=== PATIENT | female | born 1980 | race American Indian/Alaskan Native ===

== ENCOUNTER 2020-08-08 13:34 | Emergency (ER) | payer MEDICARE ==
--- NOTE | 2020-08-08 14:35 | Event Note ---
ED Screening Note Date of service: 08/08/20 Time: 14:30 ED Screening Note: This initial assessment/diagnostic orders/clinical plan/treatment(s) is/are subject to change based on patients health status, clinical progression and re- assessment by fellow clinical providers in the ED. Further treatment and workup at subsequent clinical providers discretion. Patient/guardian urged not to elope from the ED as their condition may be serious if not clinically assessed and managed. Initial orders include: 40-year-old morbidly obese female with a history of irritable bowel syndrome. She is complaining of generalized abdominal pain and diarrhea x1 week. She denies vomiting. She is complaining of nausea. She is in no acute distress
[2020-08-08 15:28] LABS: Hemoglobin 12.8 gm/dl (10.1-14.3); Mean Corpuscular HGB Conc 35 % (30-34); Mean Corpuscular Volume 88 fl (79-97); Platelet Count 256 K/mm3 (140-440); Red Blood Count 4.21 M/mm3 (3.65-5.03)
[2020-08-08 15:36] LABS: Alanine Aminotransferase 12 units/L (7-56); Albumin 4.3 g/dL (3.9-5); Blood Urea Nitrogen 9 mg/dL (7-17); Calcium 9.2 mg/dL (8.4-10.2); Hemolysis Index 29
[2020-08-08 15:49] LABS: BUN/Creatinine Ratio 13
[2020-08-08] MEDS ORDERED: ACETAMINOPHEN 325 MG TAB PO STA (19:49)
[2020-08-08] MEDS ORDERED: FAMOTIDINE 20 MG/2 ML INJ IV ONE (19:49)
[2020-08-08] MEDS ORDERED: SODIUM CHLORIDE 0.9% 1000 ML 1,000 ML IV ONE (19:49)
[2020-08-08] MEDS ORDERED: ONDANSETRON 4 MG/2 ML INJ IV ONE (19:49)
--- NOTE | 2020-08-08 19:51 | Emergency Department Report ---
ED General Adult HPI - General Chief complaint: Abdominal Pain Stated complaint: STOMACH PAIN PUI?: No Time Seen by Provider: 08/08/20 19:31 Source: patient, RN notes reviewed, old records reviewed Mode of arrival: Ambulatory Limitations: No Limitations - History of Present Illness Initial comments: The patient was evaluated in the emergency department for symptoms described in the history of present illness. He/she was evaluated in the context of the global COVID-19 pandemic, which necessitated consideration that the patient might be at risk for infection with the virus that causes COVID-19. Institutional protocols and algorithms that pertain to the evaluation of patients at risk for COVID-19 are in a state of rapid change based on information released by regulatory bodies including the CDC and federal and state organizations. These policies and algorithms were followed during the patient's care in the emergency department. Please note that these policies, procedures and recommendations changed on a rapid basis. Ms. Albarran is a pleasant 40-year-old female, with a history of obesity, and psychiatric disease. She denies a history of abdominal surgery to myself. She presents to the ER today with complaint of diffuse abdominal cramping and pain, nausea, vomiting x1 yesterday. No fever. No chest pain. Positive heart racing. No new or different shortness of breath. No dysuria. Positive nonspecific gynecologic discharge. Positive brown stool with red blood yesterday. Subjectively feels like she may have a rash on her rectum/gluteal cheeks. Not sexually active recently, no history of dyspareunia, no history of gonorrhea/chlamydia. Abdominal cramping diffuse, all over, increases with palpation and decreases with rest, does not radiate anywhere. -: Gradual, days(s) Location: abdomen Quality: aching Consistency: intermittent Improves with: other Worsens with: other - Related Data Home Medications Medication Instructions Recorded Confirmed Last Taken haloperidoL [Haloperidol] 20 mg PO TID 03/05/20 03/05/20 Unknown Dicyclomine [Bentyl] 20 mg PO BID PRN 03/31/20 03/31/20 Unknown hydrOXYzine PAMOATE [Vistaril] 50 mg PO TID 03/31/20 03/31/20 Unknown Previous Rx's Medication Instructions Recorded Last Taken Type Benztropine [Cogentin] 1 mg PO BID #30 tablet 02/16/20 Unknown Rx Sertraline [Zoloft] 100 mg PO BID #60 tablet 02/16/20 Unknown Rx busPIRone [Buspar] 15 mg PO TID #90 tablet 02/16/20 Unknown Rx carBAMazepine [TEGretol] 300 mg PO Q12HR #60 tablet 02/16/20 Unknown Rx cloZAPine 200 mg PO BID #60 tab 02/16/20 Unknown Rx Acetaminophen [Non-Aspirin Extra 500 mg PO Q6HR PRN #30 tablet 08/08/20 Unknown Rx Strength] Famotidine [Pepcid] 20 mg PO QDAY #30 tablet 08/08/20 Unknown Rx Ibuprofen [Motrin] 600 mg PO Q8H PRN #30 tablet 08/08/20 Unknown Rx Ondansetron [Zofran Odt] 4 mg PO Q8HR PRN #20 tab.rapdis 08/08/20 Unknown Rx Allergies Allergy/AdvReac Type Severity Reaction Status Date / Time No Known Allergies Allergy Verified 02/12/20 01:17 ED Review of Systems ROS: Stated complaint: STOMACH PAIN Other details as noted in HPI Constitutional: other (Denies loss of taste and loss of smell). denies: fever Eyes: denies: eye discharge ENT: denies: congestion Respiratory: denies: wheezing Cardiovascular: palpitations Gastrointestinal: abdominal pain, nausea, vomiting, diarrhea, other Genitourinary: denies: dysuria Musculoskeletal: denies: back pain Skin: rash Neurological: weakness Psychiatric: anxiety Hematological/Lymphatic: denies: easy bleeding ED Past Medical Hx - Past Medical History Previous Medical History?: Yes Hx Psychiatric Treatment: Yes (bipolar schizp borderline personality disorder) Hx Asthma: Yes - Surgical History Past Surgical History?: Yes Additional Surgical History: tonsil - Social History Smoking Status: Never Smoker Substance Use Type: Alcohol - Medications Home Medications: Home Medications Medication Instructions Recorded Confirmed Last Taken Type Benztropine [Cogentin] 1 mg PO BID #30 tablet 02/16/20 03/05/20 Unknown Rx Sertraline [Zoloft] 100 mg PO BID #60 tablet 02/16/20 03/05/20 Unknown Rx busPIRone [Buspar] 15 mg PO TID #90 tablet 02/16/20 03/05/20 Unknown Rx carBAMazepine [TEGretol] 300 mg PO Q12HR #60 tablet 07/26/20 08/13/20 Unknown Rx cloZAPine 200 mg PO BID #60 tab 02/16/20 03/05/20 Unknown Rx haloperidoL [Haloperidol] 20 mg PO TID 03/05/20 03/05/20 Unknown History Dicyclomine [Bentyl] 20 mg PO BID PRN 03/31/20 03/31/20 Unknown History hydrOXYzine PAMOATE [Vistaril] 50 mg PO TID 03/31/20 03/31/20 Unknown History Acetaminophen [Non-Aspirin Extra 500 mg PO Q6HR PRN #30 tablet 08/08/20 Unknown Rx Strength] Famotidine [Pepcid] 20 mg PO QDAY #30 tablet 08/08/20 Unknown Rx Ibuprofen [Motrin] 600 mg PO Q8H PRN #30 tablet 08/08/20 Unknown Rx Ondansetron [Zofran Odt] 4 mg PO Q8HR PRN #20 tab.rapdis 08/08/20 Unknown Rx ED Physical Exam - General Limitations: No Limitations General appearance: alert, anxious, obese - Head Head exam: Present: atraumatic, normocephalic - Eye Eye exam: Present: normal appearance, EOMI. Absent: nystagmus - ENT ENT exam: Present: normal exam, normal orophraynx, mucous membranes moist, normal external ear exam - Neck Neck exam: Present: normal inspection, full ROM. Absent: tenderness, meningismus - Respiratory Respiratory exam: Present: normal lung sounds bilaterally. Absent: respiratory distress, wheezes, rales, rhonchi, stridor, decreased breath sounds - Cardiovascular Cardiovascular Exam: Present: regular rate, normal rhythm, normal heart sounds. Absent: bradycardia, tachycardia, irregular rhythm, systolic murmur, diastolic murmur, rubs, gallop - GI/Abdominal GI/Abdominal exam: Present: soft, tenderness, normal bowel sounds, other (There is mild bilateral lower quadrant abdominal tenderness to deep palpation). Absent: distended, guarding, rebound, rigid, pulsatile mass - Rectal Rectal exam: Present: normal inspection, normal rectal tone, heme (-) stool, other (Chaperoned by Radu Angeles). Absent: heme (+) stool, black stool, bloody stool, fecal impaction, hemorrhoids - External exam: Present: normal external exam. Absent: erythema, swelling, lesions, lacerations Speculum exam: Present: normal speculum exam, vaginal discharge. Absent: erythema, cervical discharge, vaginal bleeding, foreign body Bi-manual exam: Present: normal bi-manual exam, other (Chaperoned by Radu Angeles). Absent: cervical motion tendernes, adnexal tenderness, adnexal mass, uterine enlargement, uterine tenderness - Extremities Exam Extremities exam: Present: normal inspection, full ROM, other (2+ pulses noted in the bilateral upper and lower extremities. There is no palpable cord. n egative Homans sign. Muscular compartments are soft. The pelvis is stable.). Absent: tenderness, pedal edema, joint swelling, calf tenderness - Back Exam Back exam: Present: normal inspection, full ROM. Absent: tenderness, CVA tenderness (R), CVA tenderness (L), paraspinal tenderness, vertebral tenderness - Neurological Exam Neurological exam: Present: alert, oriented X3, normal gait, other (No facial droop. Tongue midline. Extraocular movements intact bilaterally. Facial sensation intact to light touch in V1, V2, V3 distribution bilaterally. 5 and a 5 strength in 4 extremities. Sensation intact to light touch in 4 extremities.). Absent: motor sensory deficit - Psychiatric Psychiatric exam: Present: anxious - Skin Skin exam: Present: warm, dry, intact, normal color. Absent: rash ED Course Vital Signs 08/08/20 08/08/20 08/08/20 13:58 21:18 22:57 Temperature 98.4 F 98.3 F Pulse Rate 87 74 74 Respiratory 22 20 18 Rate Blood Pressure 149/93 Blood Pressure 162/92 139/78 [Left] O2 Sat by Pulse 97 100 100 Oximetry ED Medical Decision Making - Lab Data Result diagrams: 08/08/20 14:51 08/08/20 14:51 Vital Signs 08/08/20 08/08/20 13:58 21:18 Temperature 98.4 F 98.3 F Pulse Rate 87 74 Respiratory 22 20 Rate Blood Pressure 149/93 Blood Pressure 162/92 [Left] O2 Sat by Pulse 97 100 Oximetry Lab Results 08/08/20 08/08/20 08/08/20 Range/Units 14:51 14:51 14:51 WBC 9.8 (4.5-11.0) K/mm3 RBC 4.21 (3.65-5.03) M/mm3 Hgb 12.8 (10.1-14.3) gm/dl Hct 37.0 (30.3-42.9) % MCV 88 (79-97) fl MCH 31 (28-32) pg MCHC 35 H (30-34) % RDW 14.0 (13.2-15.2) % Plt Count 256 (140-440) K/mm3 Sodium 136 L (137-145) mmol/L Potassium 4.0 (3.6-5.0) mmol/L Chloride 101.4 (98-107) mmol/L Carbon Dioxide 24 (22-30) mmol/L Anion Gap 15 mmol/L BUN 9 (7-17) mg/dL Creatinine 0.7 (0.6-1.2) mg/dL Estimated GFR > 60 ml/min BUN/Creatinine Ratio 13 % Glucose 126 H (65-100) mg/dL Calcium 9.2 (8.4-10.2) mg/dL Magnesium (1.7-2.3) mg/dL Total Bilirubin < 0.20 (0.1-1.2) mg/dL AST 18 (5-40) units/L ALT 12 (7-56) units/L Alkaline Phosphatase 99 (35-129) units/L Total Creatine Kinase (30-135) units/L Total Protein 7.5 (6.3-8.2) g/dL Albumin 4.3 (3.9-5) g/dL Albumin/Globulin Ratio 1.3 % Lipase 20 (13-60) units/L HCG, Qual (Negative) Urine Color (Yellow) Urine Turbidity (Clear) Urine pH (5.0-7.0) Ur Specific [place] (1.003-1.030) Urine Protein (Negative) mg/dL Urine Glucose (UA) (Negative) mg/dL Urine Ketones (Negative) mg/dL Urine Blood (Negative) Urine Nitrite (Negative) Urine Bilirubin (Negative) Urine Urobilinogen (<2.0) mg/dL Ur Leukocyte Esterase (Negative) Urine WBC (Auto) (0.0-6.0) /HPF Urine RBC (Auto) (0.0-6.0) /HPF U Epithel Cells (Auto) (0-13.0) /HPF Urine Bacteria (Auto) (Negative) /HPF Urine Mucus /HPF 08/08/20 08/08/20 08/08/20 Range/Units 14:51 14:51 Unknown WBC (4.5-11.0) K/mm3 RBC (3.65-5.03) M/mm3 Hgb (10.1-14.3) gm/dl Hct (30.3-42.9) % MCV (79-97) fl MCH (28-32) pg MCHC (30-34) % RDW (13.2-15.2) % Plt Count (140-440) K/mm3 Sodium (137-145) mmol/L Potassium (3.6-5.0) mmol/L Chloride (98-107) mmol/L Carbon Dioxide (22-30) mmol/L Anion Gap mmol/L BUN (7-17) mg/dL Creatinine (0.6-1.2) mg/dL Estimated GFR ml/min BUN/Creatinine Ratio % Glucose (65-100) mg/dL Calcium (8.4-10.2) mg/dL Magnesium 2.10 (1.7-2.3) mg/dL Total Bilirubin (0.1-1.2) mg/dL AST (5-40) units/L ALT (7-56) units/L Alkaline Phosphatase (35-129) units/L Total Creatine Kinase 195 H (30-135) units/L Total Protein (6.3-8.2) g/dL Albumin (3.9-5) g/dL Albumin/Globulin Ratio % Lipase (13-60) units/L HCG, Qual Negative (Negative) Urine Color Yellow (Yellow) Urine Turbidity Slightly-cloudy (Clear) Urine pH 5.0 (5.0-7.0) Ur Specific [place] 1.021 (1.003-1.030) Urine Protein 30 mg/dl (Negative) mg/dL Urine Glucose (UA) Neg (Negative) mg/dL Urine Ketones Neg (Negative) mg/dL Urine Blood Neg (Negative) Urine Nitrite Neg (Negative) Urine Bilirubin Neg (Negative) Urine Urobilinogen < 2.0 (<2.0) mg/dL Ur Leukocyte Esterase Neg (Negative) Urine WBC (Auto) 2.0 (0.0-6.0) /HPF Urine RBC (Auto) 6.0 (0.0-6.0) /HPF U Epithel Cells (Auto) 4.0 (0-13.0) /HPF Urine Bacteria (Auto) 2+ (Negative) /HPF Urine Mucus 1+ /HPF - EKG Data -: EKG Interpreted by Ne EKG shows normal: sinus rhythm Rate: normal - EKG Data 08/08/20 21:32 Sinus rhythm, 65 bpm, normal axis, normal intervals, motion artifact, nonspecific T wave abnormalities, no complaint of chest pain, abnormal EKG, not a STEMI - Radiology Data Radiology results: report reviewed, image reviewed CT ABDOMEN AND PELVIS WITH IV CONTRAST INDICATION: acute lower abd pain. COMPARISON: None available. TECHNIQUE: All CT scans at this facility use dose modulation, automated exposure control, iterative reconstruction or weight based dosing, when appropriate, to reduce radiation dose to as low as reasonably achievable. FINDINGS: Lung Bases: No significant abnormality. Skeletal System: No acute abnormality. Lung Bases: No significant abnormality. Skeletal System: No acute abnormality. ABDOMEN: Liver: No significant abnormality. Gallbladder: Contracted. Bile Ducts: No significant abnormality. Pancreas: No significant abnormality. Spleen: No significant abnormality. Adrenals: No significant abnormality. Right Kidney: No acute finding. There is a 5 cm cyst in the lateral cortex of right kidney. Left Kidney: No significant abnormality. Upper GI tract: No significant abnormality. Lymph Nodes: No significant adenopathy. Aorta: No significant abnormality. Additional Findings: No significant abnormality. PELVIS: Colon: No acute abnormality. Urinary Bladder and Distal Ureters: No significant abnormality. Appendix: No significant abnormality. Lymph Nodes: No significant adenopathy. Additional Findings: There is an exophytic fibroid arising from the uterine fundus left of midline anteriorly which measures 3 cm on series 2 image 165. IMPRESSION: 1. No acute process in the abdomen or pelvis. 2. Incidental findings, as above. Signer Name: Erwin White MD Signed: 08/08/2020 8:03 PM Workstation Name: [id number] - Medical Decision Making Differential diagnosis, including but not limited to: Constipation, appendicitis, colitis, diverticulitis, anal fissure, obstruction, pelvic inflammatory disease, functional abdominal pain Assessment and plan: 40-year-old female with a complaint of nausea, vomiting, abdominal pain, in addition to a few other complaints such as brown stool with red blood, and gynecologic discharge. The patient is afebrile with reassuring vital signs. She is fairly obese, and has minimal tenderness to bilateral lower quadrant with deep palpation. Gynecologic exam benign and unremarkable. Rectal exam negative for bleeding. Laboratory studies unremarkable. Urinalysis reviewed and appreciated, the patient denies dysuria to myself. CT scan of the abdomen pelvis shows no acute surgical process. Given lack of adnexal tenderness, do not see indication for pelvic ultrasound, ovarian pathology is very unlikely. Patient observed in this ER for hours without clinical decompensation, or active vomiting. The patient can follow-up with an outpatient primary care doctor or paid search specialist for her uterine fibroids. Tylenol, ibuprofen, Pepcid, return precautions are reviewed. Critical care attestation.: If time is entered above; I have spent that time in minutes in the direct care of this critically ill patient, excluding procedure time. ED Disposition Clinical Impression: Acute abdominal pain, Uterine fibroid, Obesity Disposition: - TO HOME OR SELFCARE Is pt being admited?: No Does the pt Need Aspirin: No Condition: Stable Instructions: Abdominal Pain, Adult, Uterine Fibroids, Obesity, Adult, [id number], Abdominal Pain (ED) Additional Instructions: Do not take metformin medication for the next 2 days, if patient takes this medication. Cultures were sent today, and results will be available in the next week. Please have a primary care doctor or paid search specialist contact the medical records department to obtain culture results. Recommend follow-up with an outpatient primary care doctor within the next week. CT scan abdomen pelvis demonstrated uterine fibroids, take the prescribed pain medications, nausea medication as needed and directed, please follow-up with a paid search specialist within the next 6 weeks for uterine fibroids. Recommend that the patient aggressively lose weight, participate in physical activities as tolerated, minimize consumption of sugar, processed foods, and carbohydrates. Please return to the emergency room right away with new pain, worsened pain, migration of pain, intractable vomiting, change in mental status, confusion, inability to tolerate liquid feeds, new, worsened or different symptoms not present on the initial emergency room evaluation. Recommend avoidance of consumption of alcohol, tobacco, smoke products, heavy and spicy foods, when taking ibuprofen, please take with food. Prescriptions: Ibuprofen [Motrin] 600 mg PO Q8H PRN #30 tablet PRN Reason: Pain Acetaminophen [Non-Aspirin Extra Strength] 500 mg PO Q6HR PRN #30 tablet PRN Reason: Pain , Severe (7-10) Famotidine [Pepcid] 20 mg PO QDAY #30 tablet Ondansetron [Zofran Odt] 4 mg PO Q8HR PRN #20 tab.rapdis PRN Reason: Nausea Referrals: [facility] [Other] - 3-5 Days [facility] [Provider Group] - 3-5 Days Forms: Work/School Release Form(ED)
[2020-08-08 21:03] LABS: Bacteria,Urine 2+ /HPF (Negative); Bilirubin,Urine NEG (Negative); Blood,Urine NEG (Negative); Color,Urine Yellow (Yellow); Mucus,Urine 1+ /HPF; Urobilinogen,Urine < 2.0 mg/dL (<2.0)
--- NOTE | 2020-08-08 21:07 | Cat Scan Report ---
CT ABDOMEN AND PELVIS WITH IV CONTRAST INDICATION: acute lower abd pain. COMPARISON: None available. TECHNIQUE: All CT scans at this facility use dose modulation, automated exposure control, iterative reconstructi on or weight based dosing, when appropriate, to reduce radiation dose to as low as reasonably achieva ble. FINDINGS: Lung Bases: No significant abnormality. Skeletal System: No acute abnormality. ABDOMEN: Liver: No significant abnormality. Gallbladder: Contracted. Bile Ducts: No significant abnormality. Pancreas: No significant abnormality. Spleen: No significant abnormality. Adrenals: No significant abnormality. Right Kidney: No acute finding. There is a 5 cm cyst in the lateral cortex of right kidney. Left Kidney: No significant abnormality. Upper GI tract: No significant abnormality. Lymph Nodes: No significant adenopathy. Aorta: No significant abnormality. Additional Findings: No significant abnormality. PELVIS: Colon: No acute abnormality. Urinary Bladder and Distal Ureters: No significant abnormality. Appendix: No significant abnormality. Lymph Nodes: No significant adenopathy. Additional Findings: There is an exophytic fibroid arising from the uterine fundus left of midline an teriorly which measures 3 cm on series 2 image 165. IMPRESSION: 1. No acute process in the abdomen or pelvis. 2. Incidental findings, as above. Signer Name: Erwin White MD Signed: 08/08/2020 9:03 PM Workstation Name: [id number]
[2020-08-08] MEDS ORDERED: KETOROLAC 30 MG/1 ML INJ IV ONE (21:30)
[2020-08-08 22:58] VITALS: BP 139/78
== END 2020-08-08 22:58 | disposition home or self-care (01) ==
LOC: ED 13:34
DX: D25.9 Leiomyoma of uterus, unspecified (principal); R10.84 Generalized abdominal pain; E66.9 Obesity, unspecified; Z68.43 Body mass index [BMI] 50.0-59.9, adult; J45.909 Unspecified asthma, uncomplicated; Z98.890 Other specified postprocedural states; Z79.1 Long term (current) use of non-steroidal anti-inflammatories (NSAID); Z79.899 Other long term (current) drug therapy
CPT/HCPCS: 36415; 74177; 80053; 81001; 82550; 83690; 83735; 84703; 85027; 87210; 87591; 93005; 96361; 96374; 96375; 99284; J1885; J2405; J7030; Q9967

== ENCOUNTER 2020-11-08 01:30 | Emergency (ER) | payer MEDICARE ==
[2020-11-08 03:06] LABS: Basophils % (Auto) 0.3 % (0.0-1.8); Eosinophils # (Auto) 0.3 K/mm3 (0.0-0.4); Hematocrit 37.3 % (30.3-42.9); Hemoglobin 12.3 gm/dl (10.1-14.3); Lymphocytes # (Auto) 3.1 K/mm3 (1.2-5.4); Lymphocytes % (Auto) 35.7 % (13.4-35.0); Mean Corpuscular HGB Conc 33 % (30-34); Mean Corpuscular Volume 90 fl (79-97); Monocytes # (Auto) 0.9 K/mm3 (0.0-0.8); Monocytes % (Auto) 10.8 % (0.0-7.3); Platelet Count 229 K/mm3 (140-440); Red Blood Count 4.13 M/mm3 (3.65-5.03); Red Cell Distribution Width 15.1 % (13.2-15.2)
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
[2020-11-08 03:47] LABS: Blood Urea Nitrogen 10 mg/dL (7-17); Calcium 8.8 mg/dL (8.4-10.2); Hemolysis Index 30
[2020-11-08 03:53] LABS: BUN/Creatinine Ratio 17
[2020-11-08] MEDS ORDERED: LORazepam 2 MG/ML VIAL IM PRN (04:09)
[2020-11-08] MEDS ORDERED: ZIPRASIDONE MESYLATE 20 MG VIAL IM PRN (04:09)
[2020-11-08] MEDS ORDERED: NAPROXEN 500 MG TAB PO PRN (11:17)
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
[2020-11-08 21:25] LABS: Amphetamine Screen,Urine Negative; Benzodiazepines Screen,Urine Negative; Cannabinoid Screen,Urine Negative; Cocaine Screen,Urine Negative; Methadone Screen,Urine Negative; Opiate Screen,Urine Negative
[2020-11-08 21:28] LABS: Bacteria,Urine 1+ /HPF (Negative); Bilirubin,Urine NEG (Negative); Blood,Urine NEG (Negative); Color,Urine Yellow (Yellow); Mucus,Urine 2+ /HPF; Urobilinogen,Urine < 2.0 mg/dL (<2.0)
[2020-11-09 08:58] VITALS: BP 140/93
== END 2020-11-09 13:01 | disposition home or self-care (01) ==
LOC: ED 01:30
DX: F23 Brief psychotic disorder (principal); F25.0 Schizoaffective disorder, bipolar type; Z98.890 Other specified postprocedural states; Z79.1 Long term (current) use of non-steroidal anti-inflammatories (NSAID); Z79.899 Other long term (current) drug therapy
CPT/HCPCS: 36415; 80048; 80307; 80320; 81001; 84703; 85025; G0480